=== PATIENT | male | born 1950 | race Caucasian/White ===

== ENCOUNTER → 2016-12-28 | Day surgery (SDC) | payer OTHER, MEDICARE ==
[~2016-12-28] MED LIST: LIDOCAINE 1% 2 ML INJ ID PRN; LR 1,000 ML IV ONE; MIDAZOLAM 2 MG/2 ML VIAL ONE; fentaNYL 100 MCG/2 ML INJ ONE
--- NOTE | 2016-12-28 12:19 | PDGENHP ---
History & Physical Chief Complaint: ph polyps History of Present Illness: phx polyps. parkinsons. hypothyroid Pertinent Past, Social, Family History: no tobacco, alcohol 1 drink per week Relevant Physical Exam: A+Ox3. CTA. S1S2, RRR. +BS, soft nt Cardiorespiratory Assessment: class 2 pt
--- NOTE | 2016-12-28 12:20 | PDPROPOC ---
Sedation Plan of Care Sedation Plan of Care: mental status noted, patient educated of risks, benefits , alternatives, patient can tolerate sedation ASA Classification: ASA 2 Planned drugs: fentanyl, midazolam Mallampati Score: Class 2 Mallampati Reference Image: Patient passed 3-3-2 rule?: Yes
[2016-12-28 13:08] VITALS: O2SAT 100
--- NOTE | 2016-12-28 13:09 | POSTOPPROG ---
Post Op Note Date of Operation: 12/28/16 Surgeon: Gregg Paulino Anesthesia: IV Sedation (versed 6 mg fentanyl 100 mcg iv) Pre-op Diagnosis: phx polyps phx genetic syndrome Post-op Diagnosis: 12 polyps from 1mm to 5mm Indication: phx polyps and genetic syndrome Procedure: colon with snare and bx Findings: small polyps x 12 Inf/Abcess present in the surg proc area at time of surgery?: No EBL: Minimal (few ml) Total fluids administered: 500 ml LR Complications: none immediate
--- NOTE | 2016-12-28 13:18 | GIREPORT ---
On License Of [facility] Surgical Services - Endoscopy Department Patient Name: Shankar Juarez Procedure Date: 12/28/2016 12:19 PM Patient Type: Outpatient Attending MD/ ER Physician: Marc Sullivan Procedure: Colonoscopy Indications: High risk colon cancer surveillance: Personal history of multiple (3 or more) adenomas, history of MUTYH genetic sydrome (MAP) Providers: Gregg Paulino MD Referring MD: Irma Corrales M.D. Medicines: Fentanyl 100 micrograms IV, Midazolam 6 mg IV Complications: No immediate complications. Estimated blood loss: Minimal. Description of Procedure: After obtaining informed consent, the scope was passed under direct vis ion. Throughout the procedure, the patient's blood pressure, pulse, and oxyg en saturations were monitored continuously. The Colonoscope was introduced through the anus and advanced to the terminal ileum, with identificatio n of the appendiceal orifice and IC valve. The colonoscopy was performed wit hout difficulty. The patient tolerated the procedure well. The quality of th e bowel preparation was good. Moderate Sedation: Moderate (conscious) sedation was administered by the endoscopy nurse lisbeth juarez supervised by the endoscopist. The following parameters were monitored: oxygen saturation, heart rate, blood pressure, and response to care. To sara physician intraservice time was 30 minutes. Findings: The terminal ileum appeared normal. A tattoo was seen in the ascending colon. A post-polypectomy scar was f ound at the tattoo site. There was no evidence of residual polyp tissue. Seven sessile polyps were found in the ascending colon. The polyps were 1 to 3 mm in size. These polyps were removed with a cold biopsy forceps. Resection and retrieval were complete. Estimated blood loss was minimal . Four sessile polyps were found in the transverse colon. The polyps were 1 to 3 mm in size. These polyps were removed with a piecemeal technique usin g a cold biopsy forceps. Resection and retrieval were complete. Estimated b lood loss was minimal. A 5 mm polyp was found in the transverse colon. The polyp was semi-sess ile. The polyp was removed with a cold snare. Resection and retrieval were complete. Estimated blood loss was minimal. The exam was otherwise without abnormality. Estimated Blood Loss: Estimated blood loss was minimal. Post Op Diagnosis: - The examined portion of the ileum was normal. - A tattoo was seen in the ascending colon. A post-polypectomy scar was found at the tattoo site. There was no evidence of residual polyp tissu e. - Seven 1 to 3 mm polyps in the ascending colon, removed with a cold bi opsy forceps. Resected and retrieved. - Four 1 to 3 mm polyps in the transverse colon, removed piecemeal usin g a cold biopsy forceps. Resected and retrieved. - One 5 mm polyp in the transverse colon, removed with a cold snare. Resected and retrieved. - The examination was otherwise normal. Recommendation: - Await pathology results. - My office will call with the pathology result with 5-7 days. If you h ave not heard from my office by 14, do not assume the pathology is estevan l, please call [phone] to get the pathology reults. - Repeat colonoscopy in 2 years for surveillance based on pathology res ults. - High fiber diet. - Patient has a contact number available for emergencies. The signs and symptoms of potential delayed complications were discussed with the pat ient. Return to normal activities tomorrow. Written discharge instructions we re provided to the patient. - Continue present medications. - Discharge patient to home (ambulatory). - Return to primary care physician as previously scheduled. - Thank you for allowing me to help in your patient's care. Do not hesi reid to call with any questions. Attending Participation: I personally performed the entire procedure. Lora Najera M.D Reinaldo Paulino MD 12/28/2016 1:18:28 PM This report has been signed electronicallyMathew MD Lora Number of Addenda: 0 Note Initiated On: 12/28/2016 12:19 PM [email or web address]
[2016-12-28 13:26] VITALS: PULSE 58; RESP 16; TEMP 97.7
[2016-12-28 14:40] VITALS: BP 108/62
== END | disposition home or self-care (01) ==
LOC: FSGY 10:39
PROVIDERS: ATTEND Internal Medicine Gastroenterology
PROC: 0DBK8ZX Excision of Ascending Colon, Via Natural or Artificial Opening Endoscopic, Diagnostic (ICD-10-PCS; principal; 2016-12-28 12:15)
PROC: 0DBL8ZX Excision of Transverse Colon, Via Natural or Artificial Opening Endoscopic, Diagnostic (ICD-10-PCS; principal; 2016-12-28 12:15)
DX: Z12.11 Encounter for screening for malignant neoplasm of colon (principal); K63.5 Polyp of colon; G20 Parkinson's disease; E03.9 Hypothyroidism, unspecified; Z86.010 Personal history of colon polyps; Z15.89 Genetic susceptibility to other disease
CPT/HCPCS: J2250; J3010

== ENCOUNTER → 2017-12-16 | Outpatient (CLI) | payer OTHER, MEDICARE | LOC: FIMAGING 10:39 | PROVIDERS: ATTEND Internal Medicine | DX: M50.321 Other cervical disc degeneration at C4-C5 level (principal) ==